=== PATIENT | female | born 1995 | race Asian ===

== ENCOUNTER 2020-09-11 02:25 | Emergency (ER) | payer OTHER ==
[~2020-09-11] VITALS: Ht 162.6 cm; Wt 50.0 kg
[2020-09-11 02:36] VITALS: TEMP 97.2
[2020-09-11 02:56] LABS: BASO # 0.1 (0.0-0.2); BASO % 0.3 % (0.0-2.0); EOS # 0.1 (0.0-0.7); EOS % 0.4 % (0-4.0); GRAN # 17.1 (1.4-6.5); GRAN % 87.1 % (42.2-75.2); HEMATOCRIT 41.5 % (37.0-47.0); HEMOGLOBIN 13.9 g/dl (12.5-16.0); LYMPH # 1.7 (1.2-3.4); LYMPH % 8.7 % (20.0-51.0); MEAN CELL VOLUME 89 fl (80.0-100.0); MEAN CORPUSCULAR HEMOGLOBIN 30 pg (27.0-31.0); MEAN CORPUSCULAR HGB CONC 34 g/dl (33.0-37.0); MEAN PLATELET VOLUME 10.3 fl (7.4-10.4); MONO # 0.6 (0.1-0.6); MONO % 3.1 % (1.7-9.3); PLATELET COUNT 235 K/mm3 (130-400); RED BLOOD COUNT 4.67 M/mm3 (4.10-5.30); REDCELL DISTRIBUTION WIDTH-CV 12.1 % (11.5-14.5)
[2020-09-11 03:21] LABS: ALANINE AMINOTRANSFERASE 11 U/L (4-34); ALBUMIN 4.5 gm/dL (3.5-5.0); ALKALINE PHOSPHATASE 47 U/L (50-136); ANION GAP 11 mmol/L (7-16); AST,SGOT 18 U/L (15-37); BILIRUBIN,TOTAL 0.7 mg/dL (0.0-1.0); BLOOD UREA NITROGEN 13 mg/dL (7-17); CALCIUM 9.3 mg/dL (8.4-10.2); CARBON DIOXIDE 21 mmol/L (22-30); CHLORIDE 105 mmol/L (98-107); CREATININE, serum 0.59 (0.52-1.25); GLUCOSE 135 mg/dL (74-106); LIPASE 26 U/L (23-300); POTASSIUM 3.8 mmol/L (3.4-5.0); SODIUM 136 mmol/L (137-145); TOTAL PROTEIN 7.9 gm/dL (6.4-8.2)
[2020-09-11 03:45] LABS: TROPONIN-I < 0.012 ng/mL (0.000-0.035)
[2020-09-11 04:38] LABS: MUCOUS Present /lpf; PH 5 (5-8); SQUAMOUS EPITHELIAL 0-2 /hpf; URINE APPEARANCE Hazy; URINE BACTERIA None Seen /hpf; URINE BILIRUBIN Negative (NEGATIVE); URINE BLOOD Negative (NEGATIVE); URINE COLOR Yellow; URINE GLUCOSE Negative (NEGATIVE); URINE KETONE 1+ (NEGATIVE); URINE LEUKOCYTE ESTERASE 1+ (NEGATIVE); URINE NITRATE Negative (NEGATIVE); URINE PROTEIN(semi-quant) 1+ (NEGATIVE); URINE RBC 0-2 /hpf; URINE UROBILINOGEN Negative (NEGATIVE)
[2020-09-11 04:48] LABS: COLLECTION METHOD CLEAN CATCH
[2020-09-11] MEDS ORDERED: ZOFRAN ODT4 MG PO ×2 (08:45→09:05)
[2020-09-11 08:47] VITALS: BP 111/65; PULSE 78
[2020-09-11] MEDS ORDERED: NORCO 325 MG-51 TAB PO ×2 (08:52→09:05)
== END 2020-09-11 09:00 | disposition home or self-care (01) ==
LOC: COL.ER 02:25
PROVIDERS: Emergency Medicine
DX: R10.84 Generalized abdominal pain (principal); Z20.822 Contact with and (suspected) exposure to COVID-19; Z32.02 Encounter for pregnancy test, result negative
CPT/HCPCS: J2270; J2405; J7030; Q9967

== ENCOUNTER 2021-04-23 17:43 | Emergency (ER) | payer OTHER ==
[~2021-04-23] VITALS: Ht 162.6 cm; Wt 54.5 kg
[~2021-04-23 17:43] MED LIST: NORCO 325 MG-51 TAB PO; ZOFRAN ODT4 MG PO
[2021-04-23 18:00] VITALS: TEMP 98.3
[2021-04-23 19:00] VITALS: BP 124/70; PULSE 76
== END 2021-04-23 19:00 | disposition home or self-care (01) ==
LOC: COL.ER 17:43
DX: B34.9 Viral infection, unspecified (principal); Z20.822 Contact with and (suspected) exposure to COVID-19